=== PATIENT | female | born 1990 | race Caucasian/White ===

== ENCOUNTER 2016-10-25 05:13 | Day surgery (SDC) | payer OTHER ==
[2016-10-24 12:02] VITALS: BMI 25.4
--- NOTE | 2016-10-25 07:13 | HP ---
Past Medical History - Primary Care Physician PCP:: Waleska Ba - Admission Chief Complaint: 26yrs , LMP 10/10/16 is admitted for leep cone bx due to colpo bx reveals focal HSIL( [id number]-3). 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 PAP Smear Hx02/2010 ASCUS, HPV HR POS 2012 LGSIL, +ve Chlamydia , Colpo BX , benign as per pt 07/15/2016 LGSIL 09/07/2016 colposcopy, satisfactory, sq junction visualized . acetowhite changes at 7O'clock & between 12 & 2O'clock . 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 No: Seizure Pulmonary: Yes: Asthma Gastrointestinal: Yes: Gastritis Hepatobiliary: Yes: Cholelithiasis Renal/: No: UTI Reproductive: Yes: Other (h/o abn pap lgsil & foca hgsil 09/2016) ...: 1 ...Para: 1 ...Term: 1 (08/12/13, vaccum assit vag, del 7'9") ...LMP: 10/10/16 Heme/Onc: No: Anemia Infectious Disease: Yes: STD's (h/o chlamydia treated in 2012). No: HIV Psych: No: Addictions, Anxiety, Bipolar, Depression Endocrine: No: Diabetes Insipidus, Diabetes Mellitus, Hypothyroidism - Past Surgical History Past Surgical History: Yes: None Hx Myomectomy: No Hx Transabdominal Cerclage: No - Smoking History Smoking history: Never smoked Have you smoked in the past 12 months: No Aproximately how many cigarettes per day: 0 - Alcohol/Substance Use Hx Alcohol Use: No History of Substance Use: reports: None Home Medications - Allergies Allergies/Adverse Reactions: Allergies Allergy/AdvReac Type Severity Reaction Status Date / Time No Known Allergies Allergy Verified 10/25/16 06:51 - Home Medications Home Medications: Ambulatory Orders NK [No Known Home Medication] 05/27/16 Physical Exam-HIDE STRETCHER HAND Vital Signs: Vital Signs Temperature 98.0 F 10/25/16 06:49 Pulse Rate 78 10/25/16 06:49 Respiratory Rate 20 10/25/16 06:49 Blood Pressure 93/50 10/25/16 06:49 O2 Sat by Pulse Oximetry (%) 99 10/25/16 06:48 Constitutional: Yes: Well Nourished, No Distress Eyes: Yes: WNL HENT: Yes: WNL Neck: Yes: WNL Cardiovascular: Yes: WNL Respiratory: Yes: WNL, Regular, CTA Bilaterally, Tachypnea. No: Wheezes Gastrointestinal: Yes: WNL, Normal Bowel Sounds ...Rectal Exam: Yes: WNL Renal/: Yes: WNL. No: CVA Tenderness - Left, CVA Tenderness - Right External Genitalia: Yes: Normal Internal Exam Deferred: Yes Vaginal Exam: Yes: Normal. No: Bleeding Cervix: Yes: Normal, Other (iud string visualized) Uterus: Yes: Normal, Freely Moveable, Anteverted, Firm Adnexa: Normal: Bilateral, Not Palpable: Bilateral Breast(s): Yes: WNL. No: Discharge from Nipple, Mass, Skin Changes Musculoskeletal: Yes: WNL Extremities: Yes: WNL. No: Calf Tenderness Edema: No Integumentary: Yes: WNL Neurological: Yes: WNL ...Motor Strength: WNL Psychiatric: Yes: WNL Labs: Laboratory Tests 10/24/16 10/24/16 10/24/16 11:30 11:30 11:30 WBC 5.7 Hgb 13.7 Hct 41.4 Plt Count 206 Neutrophils % 55.6 D Lymphocytes % 30.0 D Monocytes % 8.2 Eosinophils % 5.2 H D INR 1.10 Sodium Potassium Chloride Carbon Dioxide BUN Creatinine Random Glucose AST ALT Beta HCG, Quant Urine Protein Negative Ur Leukocyte Esterase Trace H Urine RBC <1 Urine WBC 7 10/24/16 11:30 WBC Hgb Hct Plt Count Neutrophils % Lymphocytes % Monocytes % Eosinophils % INR Sodium 139 Potassium 4.3 Chloride 105 Carbon Dioxide 27 BUN 9 Creatinine 0.7 Random Glucose 80 AST 14 L ALT 17 Beta HCG, Quant < 1.0 Urine Protein Ur Leukocyte Esterase Urine RBC Urine WBC Problem List - Problem (1) HSIL on Pap smear of cervix Code(s): R87.613 - HIGH GRADE INTREPITH LESION CYTO SMR CRVX (HGSIL) (2) LGSIL on Pap smear of cervix Code(s): R87.612 - LOW GRADE INTREPITH LESION CYTO SMR CRVX (LGSIL) (3) HPV in female Code(s): A63.0 - ANOGENITAL (VENEREAL) WARTS Assessment/Plan 26 yrs , pap LGSIL,, colpo bx in favor of HGSIL focal, , IUD (mary) in utero plan Leep cone Bx
[2016-10-25] MEDS ORDERED: PROPOFOL 20 ML ONE ×2 (07:33→08:05)
[2016-10-25] MEDS ORDERED: MIDAZOLAM HCL 2 MG/2 ML SINGLE DOSE VIAL ONE (07:33)
[2016-10-25] MEDS ORDERED: METRONIDAZOLE 500 MG PREMIXED 500 MG/100 ML MG IVPB ONE (07:55)
[2016-10-25] MEDS ORDERED: metroNIDAZOLE 0.75% VAGINAL GEL 70 GM TUBE ONE (07:56)
[2016-10-25] MEDS ORDERED: METRONIDAZOLE 500 MG PREMIXED 100 ML IVPB ONE (07:56)
[2016-10-25] MEDS ORDERED: IODINE/POTASSIUM IODIDE 5%/10% 14 ML BOTTLE NR ONE (08:06)
[2016-10-25] MEDS ORDERED: DEXAMETHASONE SOD PHOSPHATE 4 MG/1 ML VIAL ONE (08:09)
[2016-10-25] MEDS ORDERED: KETOROLAC TROMETHAMINE 30 MG/1 ML VIAL ONE (08:10)
[2016-10-25] MEDS ORDERED: metroNIDAZOLE 0.75% VAGINAL GEL 70 GM TUBE VG ONE (08:17)
[2016-10-25] MEDS ORDERED: PROMETHAZINE HCL 25 MG/1 ML VIAL IVPUSH PRN (08:30)
[2016-10-25] MEDS ORDERED: LACTATED RINGERS SOLUTION 1,000 ML IV SCH (08:30)
[2016-10-25] MEDS ORDERED: oxyCODONE HCL 5 MG TABLET PO PRN (08:30)
[2016-10-25] MEDS ORDERED: ONDANSETRON 4 MG/2 ML VIAL IVPUSH PRN (08:30)
--- NOTE | 2016-10-25 08:44 | OP ---
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 cx hypertrophy , Lugol's Iodine unstained area between 9O'clock & 2O'clock IUD string in endocx LEEP cone BX done in 4 quadrants 11o'clock to 1o'clock, 7o'clock to 11o'clock , 7o'clock to 4o'clock , 4o'clock to 1o'clock ecc done ball coag cautery used for hemostasis metrogel gel inserted Surgeon: Waleska Ba Anesthesiologist/UM NURSE: Brooks Duffy Anesthesia: General Specimens Removed: leep cone biopsy in 4 segments. 7-11 oclock. 11-1o'clock. 4-7o'clock. 4-1o'clock. ecc Estimated Blood Loss (mls): 2 Fluid Volume Replaced (mls): 400 (iv flagyl 500 mg ) Operative Report Dictated: Yes
[2016-10-25] MEDS ORDERED: IBUPROFEN 400 MG TABLET (FP) PO PRN (08:48)
[2016-10-25] MEDS ORDERED: ACETAMINOPHEN 325 MG TABLET (FP) PO PRN (08:48)
[2016-10-25 09:07] VITALS: TEMP 98.4
[2016-10-25 10:30] VITALS: BP 104/58; PULSE 83
--- NOTE | 2016-10-25 17:53 | OP ---
DATE OF OPERATION: 10/25/2016 OPERATION: LEEP cone biopsy of the cervix PREOPERATIVE DIAGNOSIS: High-grade focal lesion of the cervix and low-grade squamous intraepithelial lesion (ANEL) of the cervix. POSTOPERATIVE DIAGNOSIS: High-grade focal lesion of the cervix and low-grade squamous intraepithelial lesion (ANEL) of the cervix, pending pathology. INDICATION: This is a 26-year-old, 1, para 1, 0-0-1, LMP on October 10, 2016, who had a PAP smear showing low-grade squamous intraepithelial lesion (ANEL) in July 2016. In September 2016, a colposcopic biopsy was done showing an acetowhite lesion at 7 o'clock and between the 11 and 1 o'clock positions. The 7 o'clock biopsy showed low-grade ANEL, and the 1 o'clock biopsy had a focal high-grade ANEL lesion , and in the background, low-grade ANEL. ECC was benign. PROCEDURE: The patient was taken to the operating room, placed on the operating room table and general anesthesia was given. The patient was placed in the lithotomy position. The pubis, perineum and vagina were cleaned with acetic acid, and then a plastic, medium-sized speculum was inserted into the vagina. Examination revealed the uterus to be anteverted, normal size, mobile, and the adnexa were not palpable. Vaginal discharges were dissolved with the acetic acid. Lugol's iodine was applied, and an unstained area was noted between the 7 and 1 o'clock positions. Also, an IUD string was seen from the endocervix. The IUD string was placed on one side and Cx was excised between 7 and 1 o'clock. The larger loop was used with blend current . Then, between 7 and 4 o'clock was done. After that, between 11 and 1 o'clock biopsy was taken. The last between 4 and 1 o'clock was taken. ECC was done. Then, hemostasis was achieved with a coagulation current by using the ball cautery. Estimated blood loss was less than 5 mL. IUD string was intact. MetroGel was inserted into the cervix. The patient tolerated the procedure well and she was sent to the recovery room in stable condition. Alod [id number] [facility]
--- NOTE | 2016-10-26 14:32 | PATH ---
Surgical Pathology Report Patient Name: JEFF VILLANUEVA [facility]. Rec. #: [id number] /Age/Gender: 1990 (Age: 26) / F Account: [id number] Location: [facility] SURGICAL Taken: 10/25/2016 Received: 10/25/2016 Reported: 10/26/2016 Physicians: Waleska aB M.D. Specimen(s) Received A: CERVICAL LEEP CONE -11 B: CERVICAL LEEP CONE 1-11 C: CERVICAL LEEP CONE 7-4 D: ENDOCERVICAL CURETTINGS E: CERVICAL LEEP CONE 4- Clinical History High grade ANEL cervix colposcopy biopsy 1:00 HGSIL 7:00 bx- LGSIL ECC negative History of HPV positive Final Diagnosis A. CERVIX, 7-11:00, LEEP CONE BIOPSY: CERVICAL SQUAMOUS AND ENDOCERVICAL MUCOSA WITH HIGH GRADE SQUAMOUS INTRAEPITHELIAL LESION (CERVICAL INTRAEPITHELIAL NEOPLASIA 2-3/JANETTE 2-3), FOCALLY DETTACHED; FOCI OF LOW GRADE SQUAMOUS INTRAEPITHELIAL NEOPLASIA (JANETTE 1) ALSO PRESENT. SURGICAL RESECTION MARGINS: APPEAR NEGATIVE FOR HIGH GRADE DYSPLASIA; HOWEVER, ASSESSMENT IS LIMITED BY A FOCAL DETACHMENT OF THE DYSPLASTIC EPITHELIUM. TRANSFORMATION ZONE: PRESENT. B. CERVIX, 1-11:00, LEEP CONE BIOPSY: CERVICAL SQUAMOUS AND ENDOCERVICAL MUCOSA WITH FOCAL HIGH GRADE SQUAMOUS INTRAEPITHELIAL LESION (CERVICAL INTRAEPITHELIAL NEOPLASIA 2/JANETTE 2) IN BACKGROUND OF LOW GRADE SQUAMOUS INTRAEPITHELIAL NEOPLASIA (JANETTE 1). SURGICAL RESECTION MARGINS: APPEAR NEGATIVE FOR HIGH GRADE DYSPLASIA. TRANSFORMATION ZONE: PRESENT. C. CERVIX, 7-4:00, LEEP CONE BIOPSY: CERVICAL SQUAMOUS AND ENDOCERVICAL MUCOSA WITH FOCAL HIGH GRADE SQUAMOUS INTRAEPITHELIAL LESION (CERVICAL INTRAEPITHELIAL NEOPLASIA 2/JANETTE 2) IN BACKGROUND OF LOW GRADE SQUAMOUS INTRAEPITHELIAL LESION. SURGICAL RESECTION MARGINS: APPEAR NEGATIVE FOR HIGH GRADE DYSPLASIA. D. ENDOCERVIX, CURETTAGE: FRAGMENTS OF BENIGN ENDOCERVICAL TISSUE FRAGMENTS OF INACTIVE ENDOMETRIUM WITH STROMAL CHANGES SUGGESTIVE OF EXOGENOUS HORMONE EFFECT. E. CERVIX, 4-1:00, LEEP CONE BIOPSY: FRAGMENTS OF CERVICAL SQUAMOUS AND ENDOCERVICAL MUCOSA WITH HIGH-GRADE SQUAMOUS INTRAEPITHELIAL LESION (CERVICAL INTRAEPITHELIAL NEOPLASIA 2-3/ JANETTE 2-3); AREAS OF LOW GRADE SQUAMOUS INTRAEPITHELIAL LESION ALSO PRESENT. SURGICAL RESECTION MARGINS: LIMITED ASSESSMENT DUE TO THE FRAGMENTED NATURE OF THE SPECIMEN. TRANSFORMATION ZONE: PRESENT. Electronically Signed Glen Duncan M.D. Gross Description A. Received in formalin labeled "LEEP cone 7-11" is a 1.4 x 0.6 x 0.2 cm irregular, unoriented portion of soft tissue, consistent with a portion of cervix. The specimen is partially surfaced by a keyes-pink, shiny and glistening mucosa. The specimen is inked green, serially sectioned and entirely submitted in 2 cassettes. B. Received in formalin labeled "LEEP cone 1-11" is a 1.6 x 0.9 x 0.2 cm irregular, unoriented portion of soft tissue, consistent with a portion of cervix. The specimen is partially surfaced by a keyes-pink, shiny and glistening mucosa. The specimen is inked green, serially sectioned and entirely submitted in 2 cassettes. C. Received in formalin labeled "LEEP cone 7-4" is a 1.5 x 0.6 x 0.2 cm irregular, unoriented portion of soft tissue, consistent with a portion of cervix. The specimen is partially surfaced by a keyes-pink, shiny and glistening mucosa. The specimen is inked green, serially sectioned and entirely submitted in 2 cassettes. D. Received in formalin labeled "endocervical curettage" is a 1.2 x 0.8 x 0.2 cm aggregate of blood-tinged mucus containing keyes soft tissue fragments. The formalin is filtered and the specimen is entirely submitted in one cassette. E. Received in formalin labeled "LEEP cone 4-1" are 4 pink keyes, irregular, unoriented portions of soft tissue ranging from 0.5 x 0.2 x 0.1 cm to 0.9 x 0.4 x 0.2 cm. The specimens are inked green, serially sectioned and entirely submitted in 2 cassettes. 10/25/2016 saudi10/25/2016
== END 2016-10-25 10:20 | disposition home or self-care (01) ==
LOC: JASU-SURG 05:13
PROVIDERS: ATTEND Obstetrics & Gynecology
PROC: 0UBC7ZX Excision of Cervix, Via Natural or Artificial Opening, Diagnostic (ICD-10-PCS; principal; 2016-10-25 07:30)
DX: D06.0 Carcinoma in situ of endocervix (principal)
CPT/HCPCS: 88305-TC; 88307-TC; 94760

== ENCOUNTER 2016-11-12 09:49 | Emergency (ER) | payer OTHER ==
[2016-11-12 10:00] VITALS: TEMP 98; BMI 25.7
[2016-11-12] MEDS ORDERED: KETOROLAC TROMETHAMINE 30 MG/1 ML VIAL IVPUSH ONE (10:49)
--- NOTE | 2016-11-12 10:49 | PDOC ---
History of Present Illness - General Chief Complaint: Chest Pain Stated Complaint: CHEST PAIN Time Seen by Provider: 11/12/16 10:06 History Source: Patient Exam Limitations: No Limitations - History of Present Illness Initial Comments: 11/12/16 11:29 26-year-old female presents to the ED for evaluation of intermittent chest achiness greater on the left side for the past week. Patient states pain is worsened with deep breathing and movement and denies palpitations, nausea, diaphoresis, shortness of breath, or cough. Patient denies any change in activity, recent travel, recent illness. Patient does state had a leak procedure done a few weeks ago and is currently on exogenous estrogen tablets. Presenting Symptoms: Chest Pain Timing/Duration: reports: intermittent Severity/Quality: reports: moderate, aching Location: reports: substernal Chest Pain Radiation: reports: no radiation Activities at Onset: reports: none Prior Chest Pain/Cardiac Workup: reports: No prior chest pain Modifying Factors: improves with: movement (worsen) Nitro Today/Relief: Yes: no nitro taken today Aspirin Received prior to arrival (Core Measure): Yes: no aspirin today Associated Symptoms: Yes: Chest Pain/pressure Past History - Past Medical History Allergies/Adverse Reactions: Allergies Allergy/AdvReac Type Severity Reaction Status Date / Time No Known Allergies Allergy Verified 11/12/16 09:57 Home Medications: Ambulatory Orders NK [No Known Home Medication] 11/12/16 Anemia: No Asthma: Yes Cancer: No Cardiac Disorders: No CVA: No COPD: No CHF: No Dementia: No Diabetes: No GI Disorders: Yes (hx gallstones) Disorders: No HTN: No Hypercholesterolemia: No Liver Disease: No Seizures: No Thyroid Disease: No - Surgical History Abdominal Surgery: No Appendectomy: No Cardiac Surgery: No Cholecystectomy: No Gastric Stapling: No GI Surgery: No Lung Surgery: No Neurologic Surgery: No Orthopedic Surgery: No - Reproductive History LMP Normal: Yes Is Patient Now?: No - Psycho/Social/Smoking Cessation Hx Anxiety: No Suicidal Ideation: No Smoking Status: No Smoking History: Never smoked Have you smoked in the past 12 months: No Number of Cigarettes Smoked Daily: 0 Information on smoking cessation initiated: No Hx Alcohol Use: No Drug/Substance Use Hx: No Substance Use Type: None Hx Substance Use Treatment: No Patient Lives Alone: No Lives with/in: parents Cardiac Specific PMH - Complaint Specific PMHX Pacemaker: No Review of Systems - Review of Systems Able to Perform ROS?: Yes Constitutional: No: Symptoms Reported HEENTM: No: Symptoms Reported Respiratory: No: Symptoms reported Cardiac (ROS): Yes: Chest Pain ABD/GI: No: Symptoms Reported : No: Symptoms Reported Musculoskeletal: Yes: Muscle Pain (anterior chest wall) Integumentary: No: Symptoms Reported Neurological: No: Symptoms reported Hematologic/Lymphatic: No: Symptoms Reported *Physical Exam - Vital Signs Last Vital Signs Temp Pulse Resp BP Pulse Ox 98 F 94 H 18 113/64 100 11/12/16 09:57 11/12/16 09:57 11/12/16 09:57 11/12/16 09:57 11/12/16 09:57 - Physical Exam General Appearance: Yes: Nourished, Appropriately Dressed. No: Apparent Distress Neck: positive: Normal Thyroid, Supple Respiratory/Chest: positive: Chest Tender (anterior chest wall), Lungs Clear, Normal Breath Sounds. negative: Respiratory Distress, Accessory Muscle Use Cardiovascular: positive: Regular Rhythm, Regular Rate. negative: Murmur Gastrointestinal/Abdominal: positive: Soft. negative: Tenderness Extremity: positive: Normal Capillary Refill Integumentary: positive: Normal Color, Warm, Moist. negative: Erythema, Rash Neurologic: positive: Motor Strength 5/5 (ambulatory) Heart Score/ECG Review - ECG Intrepretation Rhythm: Regular Rhythm (rate 76. NSR) ED Treatment Course - LABORATORY CBC & Chemistry Diagram: 11/12/16 11:00 11/12/16 11:00 - ADDITIONAL ORDERS Additional order review: Laboratory Results 11/12/16 11/12/16 11/12/16 11:00 11:00 11:00 D-Dimer < 200 Sodium 139 Potassium 4.3 Chloride 105 Carbon Dioxide 28 Anion Gap 6 L BUN 7 D Creatinine 0.7 Creat Clearance w eGFR > 60 Random Glucose 91 Calcium 8.7 Total Bilirubin 0.4 D AST 12 L ALT 17 Alkaline Phosphatase 48 Creatine Kinase 68 Troponin I < 0.02 Total Protein 7.3 Albumin 3.9 Urine Color Ltyellow Urine Appearance Clear Urine pH 7.0 Urine Protein Negative Urine Glucose (UA) Negative Urine Ketones Negative Urine Blood 1+ H Urine Nitrite Negative Urine Bilirubin Negative Urine Urobilinogen Negative Ur Leukocyte Esterase 1+ H Urine HCG, Qual Negative 11/12/16 11:00 RBC 4.87 MCV 86.4 MCHC 33.4 RDW 14.0 MPV 9.7 Neutrophils % 63.8 Lymphocytes % 24.1 Monocytes % 6.5 Eosinophils % 4.6 H Basophils % 1.0 - RADIOLOGY Radiology Studies Ordered: Category Date Time Status CHEST X-RAY PORTABLE* [RAD] Stat Radiology 11/12/16 10:50 Taken - Medications Given in the ED: ED Medications Discontinued Medications Generic Name Dose Route Start Last Admin Trade Name Lisa PRN Reason Stop Dose Admin Ketorolac Tromethamine 30 mg 11/12/16 10:49 11/12/16 11:30 Toradol Injection - IVPUSH 11/12/16 10:50 30 mg ONCE ONE Administration Medical Decision Making - Medical Decision Making 11/12/16 11:06 Patient with intermittent anterior chest wall which she describes an achiness worsened with deep breathing and movement. Patient Had reproducible chest pain with no other acute findings. Patient with recent surgery 3 weeks ago along with usage of control daily. Patient ordered for cardiac workup, chest x- ray, d-dimer, and IV Toradol. 11/12/16 13:27 Chest x-ray negative for acute findings. Patient states medication as relief of symptoms. Patient remains asymptomatic. Patient discharged home with recommendations to take Motrin as needed for discomfort and follow-up with her PCP. Laboratory Tests 11/12/16 11/12/16 11/12/16 11:00 11:00 11:00 WBC 5.2 Hgb 14.1 Hct 42.0 Plt Count 218 Neutrophils % 63.8 D-Dimer < 200 Sodium Potassium Chloride Anion Gap BUN Creatinine Creat Clearance w eGFR Random Glucose Calcium Total Bilirubin AST Alkaline Phosphatase Creatine Kinase Troponin I Total Protein Urine Ketones Negative Urine Blood 1+ H Urine Nitrite Negative Ur Leukocyte Esterase 1+ H Urine HCG, Qual Negative 11/12/16 11:00 WBC Hgb Hct Plt Count Neutrophils % D-Dimer Sodium 139 Potassium 4.3 Chloride 105 Anion Gap 6 L BUN 7 D Creatinine 0.7 Creat Clearance w eGFR > 60 Random Glucose 91 Calcium 8.7 Total Bilirubin 0.4 D AST 12 L Alkaline Phosphatase 48 Creatine Kinase 68 Troponin I < 0.02 Total Protein 7.3 Urine Ketones Urine Blood Urine Nitrite Ur Leukocyte Esterase Urine HCG, Qual 11/12/16 13:30 *DC/Admit/Observation/Transfer Diagnosis at time of Disposition: Chest wall pain - Discharge Dispostion Disposition: HOME Condition at time of disposition: Improved - Patient Instructions Printed Discharge Instructions: DI for Costochondritis Additional Instructions: Please take Motrin for discomfort and avoid movements that trigger pain. Please follow-up with your PCP and/or return to ED if symptoms worsen.
[2016-11-12 11:09] LABS: EOSINOPHIL 4.6 % (0-4.5); MCH 28.9 pg (25.7-33.7); MCHC 33.4 g/dl (32.0-36.0); MEAN CELL VOLUME 86.4 fl (80-96); MEAN PLT VOLUME 9.7 fl (7.5-11.1); NEUTROPHILS 63.8 % (42.8-82.8); PLATELET COUNT 218 K/MM3 (134-434); WHITE BLOOD COUNT 5.2 K/mm3 (4.0-10.0)
[2016-11-12] MEDS ORDERED: KETOROLAC TROMETHAMINE 30 MG/1 ML VIAL ONE (11:21)
[2016-11-12 11:24] LABS: URINE APPEARANCE CLEAR; URINE BILIRUBIN NEGATIVE (NEGATIVE); URINE COLOR LTYELLOW; URINE GLUCOSE (UA) NEGATIVE (NEGATIVE); URINE KETONE NEGATIVE (NEGATIVE); URINE NITRITE NEGATIVE (NEGATIVE); URINE PROTEIN NEGATIVE (NEGATIVE); URINE UROBILINOGEN NEGATIVE E.U./dl (0.2-1.0)
[2016-11-12 11:29] LABS: URINE BLOOD 1+ (NEGATIVE); URINE LEUK ESTERASE 1+ (NEGATIVE)
[2016-11-12 11:40] LABS: ALBUMIN 3.9 g/dl (3.4-5.0); ANION GAP 6 (8-16); BILIRUBIN,TOTAL 0.4 mg/dL (0.2-1.0); CALCIUM 8.7 mg/dL (8.5-10.1); CO2 28 mmol/L (21-32); COCKROFT - GAULT 128.5115; CREATININE 0.7 mg/dL (0.55-1.02); GLUCOSE,RANDOM 91 mg/dL (74-106); SGOT/AST 12 U/L (15-37); SGPT/ALT 17 U/L (12-78); TOT PROT 7.3 g/dl (6.4-8.2)
[2016-11-12 11:42] LABS: ALK PHOS 48 U/L (45-117); TROPONIN I < 0.02 ng/ml (0.00-0.05)
--- NOTE | 2016-11-12 13:26 | EKG ---
Test Reason : Blood Pressure : / mmHG Vent. Rate : 076 BPM Atrial Rate : 076 BPM P-R Int : 128 ms QRS Dur : 084 ms QT Int : 366 ms P-R-T Axes : 054 078 043 degrees QTc Int : 411 ms NORMAL SINUS RHYTHM NORMAL ECG NO PREVIOUS ECGS AVAILABLE Confirmed by EBONY WALKER MD ([id number]) on 11/12/2016 1:26:22 PM Referred By: Confirmed By:EBONY WALKER MD
[2016-11-12 14:08] VITALS: BP 112/62; PULSE 89
[2016-11-13 13:10] LABS: URINE BACTERIA RARE /hpf (NEGATIVE); URINE RBC 1 /hpf (0-3); URINE WBC 2 (3-5)
== END 2016-11-12 14:08 | disposition home or self-care (01) ==
LOC: JER 09:49
PROC: 3E0333Z Introduction of Anti-inflammatory into Peripheral Vein, Percutaneous Approach (ICD-10-PCS; principal; 2016-11-12)
DX: M94.0 Chondrocostal junction syndrome [Tietze] (principal)
CPT/HCPCS: 36415; 71010-TC; 80053; 81003; 81015; 82550; 84484; 84703; 85025; 85379; 93005; 93010; 96374; 99283-25

== ENCOUNTER → 2016-12-05 | Emergency (ER) | payer OTHER ==
[~2016-12-05] MED LIST: ONDANSETRON 4 MG/2 ML VIAL IVPB ONE; ONDANSETRON 4 MG/2 ML VIAL ONE; SODIUM CHLORIDE 1,000 ML IV ONE
[2016-12-05 14:33] VITALS: BP 111/68; PULSE 89; TEMP 98.9; BMI 25.5
--- NOTE | 2016-12-05 15:18 | PDOC ---
History of Present Illness <Mitchell Lund - Last Filed: 12/05/16 17:51> - History of Present Illness Initial Comments: 12/05/16 18:26 The patient is a 26 year old female, with no significant past medical history of gallstones and asthma, who presents to the emergency department with nausea, vomiting, diarrhea and abdominal pain today. She reports frequent episodes of emesis today. She also reports numerous episodes of dark, watery bowel movements at home. She reports similar experiences with the nausea and abdominal pain, however, she was concerned about her diarrhea. She states her son had diarrhea yesterday. She also denies any symptoms since being in the ED and feels better. No recent travel. She denies chest pain, shortness of breath, headache and dizziness. She denies fever, chills, and constipation. She denies dysuria, frequency, urgency and hematuria. 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 Nikita Lima <Ashley Maier - Last Filed: 12/05/16 18:28> - General Chief Complaint: Nausea/Vomiting Stated Complaint: ABD PAIN Time Seen by Provider: 12/05/16 15:04 Past History - Past Medical History Anemia: No Asthma: Yes Cancer: No Cardiac Disorders: No CVA: No COPD: No CHF: No Dementia: No Diabetes: No GI Disorders: Yes (hx gallstones) Disorders: No HTN: No Hypercholesterolemia: No Liver Disease: No Seizures: No Thyroid Disease: No - Surgical History Abdominal Surgery: No Appendectomy: No Cardiac Surgery: No Cholecystectomy: No Gastric Stapling: No GI Surgery: No Lung Surgery: No Neurologic Surgery: No Orthopedic Surgery: No - Psycho/Social/Smoking Cessation Hx Anxiety: No Suicidal Ideation: No Smoking Status: No Smoking History: Never smoked Have you smoked in the past 12 months: No Number of Cigarettes Smoked Daily: 0 Information on smoking cessation initiated: No Hx Alcohol Use: No Drug/Substance Use Hx: No Substance Use Type: None Hx Substance Use Treatment: No <Mitchell Lund - Last Filed: 12/05/16 17:51> <Ashley Maier - Last Filed: 12/05/16 18:28> - Past Medical History Allergies/Adverse Reactions: Allergies Allergy/AdvReac Type Severity Reaction Status Date / Time No Known Allergies Allergy Verified 11/12/16 09:57 Home Medications: Ambulatory Orders NK [No Known Home Medication] 11/12/16 Review of Systems - Review of Systems Able to Perform ROS?: Yes Comments:: 12/05/16 18:26 CONSTITUTIONAL: No reported: Fever, Chills, Diaphoresis, Generalized Weakness, Malaise, Loss of Appetite HEENT: No reported: Rhinorrhea, Nasal Congestion, Throat Pain, Throat Swelling, Difficulty Swallowing, Mouth Swelling, Ear Pain, Eye Pain, Visual Changes CARDIOVASCULAR: No reported: Chest Pain, Syncope, Palpitations, Irregular Heart Rate, Lightheadedness, Peripheral Edema RESPIRATORY: No reported: Cough, Shortness of Breath, SOB with Exertion, Orthopnea, Wheezing , Stridor, Hemoptysis GASTROINTESTINAL: +Abdominal pain,Nausea, Vomiting, Diarrhea, No reported: Abdominal Distension, Constipation, Hematochezia GENITOURINARY: No reported: Dysuria, Frequency, Urgency, Hesitancy, Flank Pain, Genital Pain MUSCULOSKELETAL: No reported: Myalgia, Arthralgia, Joint Swelling, Back pain, Neck Pain SKIN: No reported: Rash, Itching, Pallor HEMEATOLOGIC/IMMUNOLOGIC: No reported: Easy Bleeding, Easy Bruising, Lymphadenopathy, Frequent infections ENDOCRINE: No reported: Unexplained Weight Gain, Unexplained Weight Loss, Heat Intolerance , Cold Intolerance NEUROLOGIC: No reported: Headache, Focal Weakness, Paresthesias, Vertigo, Lightheadedness, Unsteady Gait, Seizure, Mental Status Changes, Incontinence PSYCHIATRIC: No reported: Anxiety, Depression <Ashley Maier - Last Filed: 12/05/16 18:28> *Physical Exam - Vital Signs Last Vital Signs Temp Pulse Resp BP Pulse Ox 98.9 F 89 20 111/68 97 12/05/16 14:31 12/05/16 14:31 12/05/16 14:31 12/05/16 14:31 12/05/16 14:31 <Mitchell Lund - Last Filed: 12/05/16 17:51> - Vital Signs Last Vital Signs Temp Pulse Resp BP Pulse Ox 98.9 F 89 20 111/68 97 12/05/16 14:31 12/05/16 14:31 12/05/16 14:31 12/05/16 14:31 12/05/16 14:31 - Physical Exam Comments: 12/05/16 18:27 GENERAL: The patient is awake, alert, and fully oriented, Nontoxic - in no acute distress. HEAD: Normocephalic, atraumatic. EYES: extraocular movements intact, sclera anicteric, conjunctiva clear. ENT: Normal voice, Moist mucous membranes. NECK: Normal range of motion, supple LUNGS: Breath sounds equal, clear to auscultation bilaterally. No wheezes, no rhonchi, no rales. HEART: Regular rate and rhythm, without murmur, rub or gallop. ABDOMEN: Soft, nontender, normoactive bowel sounds. No guarding, no rebound. No CVA tenderness EXTREMITIES: Normal range of motion, no edema. No clubbing or cyanosis. No cords, erythema, or tenderness. NEUROLOGICAL: No facial assymetry, Normal speech, PSYCH: Normal mood, normal affect. SKIN: Warm, Dry, normal turgor <Ashley Maier - Last Filed: 12/05/16 18:28> ED Treatment Course - LABORATORY CBC & Chemistry Diagram: 12/05/16 15:40 12/05/16 15:40 <Mitchell Lund - Last Filed: 12/05/16 17:51> - LABORATORY CBC & Chemistry Diagram: 12/05/16 15:40 12/05/16 15:40 - ADDITIONAL ORDERS Additional order review: Laboratory Results 12/05/16 12/05/16 16:45 15:40 Sodium 139 Potassium 4.2 Chloride 105 Carbon Dioxide 26 Anion Gap 8 BUN 13 D Creatinine 0.6 Creat Clearance w eGFR > 60 Random Glucose 86 Calcium 9.3 Total Bilirubin 0.4 AST 15 D ALT 17 Alkaline Phosphatase 50 Total Protein 7.7 Albumin 4.3 Urine Color Yellow Urine Appearance Clear Urine pH 6.0 Urine Protein Negative Urine Glucose (UA) Negative Urine Ketones 1+ H Urine Blood Negative Urine Nitrite Negative Urine Bilirubin Negative Urine Urobilinogen Negative Ur Leukocyte Esterase Negative Urine HCG, Qual Negative 12/05/16 15:40 RBC 4.92 MCV 86.4 MCHC 32.4 RDW 13.7 MPV 10.5 Neutrophils % 89.7 H D Lymphocytes % 5.4 L D Monocytes % 4.1 Eosinophils % 0.5 D Basophils % 0.3 - Medications Given in the ED: ED Medications Discontinued Medications Generic Name Dose Route Start Last Admin Trade Name Lisa PRN Reason Stop Dose Admin Sodium Chloride 1,000 mls @ 1,000 mls/hr 12/05/16 15:18 12/05/16 16:39 Normal Saline - IV 12/05/16 16:17 1,000 mls/hr .Q1H ONE Administration Ondansetron HCl 4 mg 12/05/16 15:18 12/05/16 16:40 Zofran Injection IVPB 12/05/16 15:19 4 mg ONCE ONE Administration <Ashley Maier - Last Filed: 12/05/16 18:28> Medical Decision Making - Medical Decision Making 12/05/16 16:39 26y F hx of gallstones presenting for evaluation of LLQ pain associated with vomiting/diarrhea x 1 day, pt denies any fevers, and states her pain n/v/d has largely resolved prior to evaluation. on exam pt is well appearing, chatting with her friends with nontender abdomen. suspect gastroenteritis will obtalin labs will reassess 12/05/16 17:36 the pts labs reviewed noted for mild leukocytosis and left shift otherwise nonspecific no abd pain will po challenge if able to tolerate oral intake will dc with pmd fu return precautions were discussed 12/05/16 17:38 <Mitchell Lund - Last Filed: 12/05/16 17:51> *DC/Admit/Observation/Transfer - Discharge Dispostion Admit: No <Mitchell Lund - Last Filed: 12/05/16 17:51> - Attestations Scribe Attestion: 12/05/16 18:27 Documentation prepared by Ashley Maier, acting as manager medical for Mitchell Lund MD <Ashley Maier - Last Filed: 12/05/16 18:28> Diagnosis at time of Disposition: Gastroenteritis - Discharge Dispostion Disposition: HOME Condition at time of disposition: Improved - Referrals Referrals: Saw Lima [Primary Care Provider] - - Patient Instructions Printed Discharge Instructions: Gastroenteritis Diet, DI for Viral Gastroenteritis -- Adult Additional Instructions: Return to the emergency department immediately with ANY new, persistent or worsening symptoms including worsening abdominal pain, fevers, inability to tolerate oral intake, chest pain, shortness of breath or any other concerns. Stay well hydrated. You MUST call and follow up with your doctor tomorrow. Your emergency department visit is not complete without a followup with your doctor for reevaluation. Please make sure your doctor reviews the results of your emergency evaluation.
[2016-12-05 15:51] LABS: BASOPHIL 0.3 % (0-2.0); EOSINOPHIL 0.5 % (0-4.5); MCHC 32.4 g/dl (32.0-36.0); MEAN CELL VOLUME 86.4 fl (80-96); MEAN PLT VOLUME 10.5 fl (7.5-11.1); NEUTROPHILS 89.7 % (42.8-82.8); PLATELET COUNT 222 K/MM3 (134-434); RDW 13.7 % (11.6-15.6); WHITE BLOOD COUNT 10.6 K/mm3 (4.0-10.0)
[2016-12-05 16:19] LABS: ALBUMIN 4.3 g/dl (3.4-5.0); ANION GAP 8 (8-16); BILIRUBIN,TOTAL 0.4 mg/dL (0.2-1.0); CALCIUM 9.3 mg/dL (8.5-10.1); CO2 26 mmol/L (21-32); CREATININE 0.6 mg/dL (0.55-1.02); GLUCOSE,RANDOM 86 mg/dL (74-106); SGOT/AST 15 U/L (15-37); SGPT/ALT 17 U/L (12-78); TOT PROT 7.7 g/dl (6.4-8.2)
[2016-12-05 16:20] LABS: ALK PHOS 50 U/L (45-117)
[2016-12-05 17:03] LABS: URINE APPEARANCE CLEAR; URINE BILIRUBIN NEGATIVE (NEGATIVE); URINE BLOOD NEGATIVE (NEGATIVE); URINE COLOR YELLOW; URINE GLUCOSE (UA) NEGATIVE (NEGATIVE); URINE KETONE 1+ (NEGATIVE); URINE LEUK ESTERASE NEGATIVE (NEGATIVE); URINE NITRITE NEGATIVE (NEGATIVE); URINE PROTEIN NEGATIVE (NEGATIVE); URINE UROBILINOGEN NEGATIVE E.U./dl (0.2-1.0)
== END | disposition home or self-care (01) ==
LOC: JER 14:17
PROC: 3E033GC Introduction of Other Therapeutic Substance into Peripheral Vein, Percutaneous Approach (ICD-10-PCS; principal; 2016-12-05)
PROC: 3E0337Z Introduction of Electrolytic and Water Balance Substance into Peripheral Vein, Percutaneous Approach (ICD-10-PCS; 2016-12-05)
DX: K52.9 Noninfective gastroenteritis and colitis, unspecified (principal)
CPT/HCPCS: 36415; 80053; 81003; 84703; 85025; 96361; 96374; 99283-25